=== PATIENT | male | born 1955 | race Caucasian/White ===

== ENCOUNTER 2016-12-21 19:03 | Emergency (ER) | payer MEDICARE, SELFPAY | END 2016-12-22 01:37 | disposition home or self-care (01) | LOC: ER 19:03 | DX: N28.89 Other specified disorders of kidney and ureter (principal); I10 Essential (primary) hypertension; Z87.442 Personal history of urinary calculi; Z79.82 Long term (current) use of aspirin; Z79.899 Other long term (current) drug therapy | CPT/HCPCS: 36415; Q9967 ==

== ENCOUNTER 2017-01-04 18:45 | Inpatient (IN) | payer MEDICARE, SELFPAY ==
[~2017-01-04] VITALS: Ht 185.4 cm; Wt 119.3 kg
--- NOTE | 2017-01-04 18:52 | NUR ---
1840: PT ON FLOOR TO ROOM 200-4 VIA STRETCHER. PT BEING RECOVERED IN ROOM S/P SURGERY
--- NOTE | 2017-01-06 10:00 | NUR ---
GAVE BARRY OH RN REPORT ON PATIENT AND ANSWERED ALL HER QUESTIONS. PATIENT WAS TOLD THAT HE WAS GOING TO BE MOVED TO ROOM 303 WHEN THE LAMP REPLACER COMES IN UPSTAIRS. PATIENT VERBALIZES UNDERSTANDING AND ALL OF HIS BELONGINGS WERE PACKED UP.
--- NOTE | 2017-01-06 12:27 | NUR ---
PATIENT EXITED ICU VIA W/C ACCOMPANIED BY BAND ATTACHER AND SON IN NO ACUTE DISTRESS TO GO TO ROOM 303. ALL OF PATIENT'S BELONGINGS WERE SENT UP WITH HIM. HE ALSO AMBULATED TO THE ICU DOORS TO THE W/C TO GET HIS THERAPY EXERCISE IN THIS MORNING.
--- NOTE | 2017-01-06 14:19 | NUR ---
1300- PT ARRIVED TO FLOOR IN STABLE CONDITON. AGREE WITH PREVIOUS ASSESSMENT. PT REQUESTING TO SIT UP IN THE RECLINER FOR A WHILE AT THIS TIME.
--- NOTE | 2017-01-07 02:46 | NUR ---
PT HAD OXYGEN SATURATION OF 90% ON RA. AT APPROXIMATELY 22:00 PT PUT ON 1.5L OXYGEN. INCREASED TO MID 90'S%/
== END 2017-01-09 15:35 | disposition home or self-care (01) | DRG 660 ==
LOC: ICU 18:45 → MED 01-06 12:29
PROVIDERS: ADMIT Internal Medicine
PROC: 0TT10ZZ Resection of Left Kidney, Open Approach (ICD-10-PCS; principal; 2017-01-04)
PROC: 0JN80ZZ Release Abdomen Subcutaneous Tissue and Fascia, Open Approach (ICD-10-PCS; 2017-01-04)
DX: N28.89 Other specified disorders of kidney and ureter (principal); K91.3 Postprocedural intestinal obstruction; N17.9 Acute kidney failure, unspecified; N99.0 Postprocedural (acute) (chronic) kidney failure; I10 Essential (primary) hypertension; K59.00 Constipation, unspecified; E78.5 Hyperlipidemia, unspecified; Z87.442 Personal history of urinary calculi; K21.9 Gastro-esophageal reflux disease without esophagitis; I87.2 Venous insufficiency (chronic) (peripheral); Z85.038 Personal history of other malignant neoplasm of large intestine; M54.5 Low back pain; G89.4 Chronic pain syndrome; J30.2 Other seasonal allergic rhinitis; Z90.49 Acquired absence of other specified parts of digestive tract; Z87.891 Personal history of nicotine dependence; Z79.82 Long term (current) use of aspirin; Z79.899 Other long term (current) drug therapy; K66.0 Peritoneal adhesions (postprocedural) (postinfection)
CPT/HCPCS: 88342; 97162-GP; 97166; J1644; J2550; J2704; J2765; P9047

== ENCOUNTER → 2017-01-04 | Day surgery (SDC) | payer MEDICARE, OTHER | END | disposition home or self-care (01) | LOC: SDC 12:11 | DX: C64.2 Malignant neoplasm of left kidney, except renal pelvis (principal); I25.10 Atherosclerotic heart disease of native coronary artery without angina pectoris; Z79.82 Long term (current) use of aspirin; Z79.1 Long term (current) use of non-steroidal anti-inflammatories (NSAID); Z79.899 Other long term (current) drug therapy; Z95.5 Presence of coronary angioplasty implant and graft | CPT/HCPCS: 88342; J2704; P9047 ==

== ENCOUNTER 2017-01-14 18:20 | Emergency (ER) | payer MEDICARE, SELFPAY | END 2017-01-14 19:01 | disposition home or self-care (01) | LOC: ER 18:20 | DX: L25.1 Unspecified contact dermatitis due to drugs in contact with skin (principal); T48.5X5A Adverse effect of other anti-common-cold drugs, initial encounter; I25.2 Old myocardial infarction; I10 Essential (primary) hypertension; Z79.82 Long term (current) use of aspirin; Z79.899 Other long term (current) drug therapy; Z98.890 Other specified postprocedural states ==